=== PATIENT | female | born 1975 | race Caucasian/White ===

== ENCOUNTER 2016-08-01 16:47 | Emergency (ER) | payer OTHER ==
[~2016-08-01] VITALS: Wt 90.6 kg
--- NOTE | 2016-08-01 19:30 | RADRPT ---
PROCEDURE: US OB. CLINICAL INDICATION: Vaginal bleeding TECHNIQUE: Transabdominal and transvaginal views of the pelvis are available for review. COMPARISON: No prior studies are available for comparison. FINDINGS: There is a single intrauterine gestation with the crown-rump length measuring 5.2 cm, corresponding to a gestational age of 11 weeks and 6 days. The heart rate is noted at 166 bpm. The placenta is posterior. There is no evidence of placental abruption. The placenta is seen near the edge of the internal os with partial placenta previa. The cervix measures 3.5 cm in length. The ovaries are not visualized. There is no free fluid. RPTAT: AA IMPRESSION: Single live intrauterine with an estimated gestational age of 11 weeks and 6 days, based o n ultrasound measurements. Posterior placenta with partial previa at this time. Follow-up is needed. MEHNAZ based on ultrasound measurements is 02/14/17. .Bryan Sotelo MD, MD Date Time Electronically viewed and signed by .Bryan Sotelo MD, on 08/01/2016 19:30 .S/
[2016-08-01 19:31] LABS: ADD SCAN DIFF NO
[2016-08-01 19:34] LABS: ABNORMAL IP MESSAGE 1; ADD UMIC YES; EOSINOPHILS # 0.1 10^3/ul (0.0-0.5); EOSINOPHILS % 1.2 % (0.0-7.0); URINE BILIRUBIN (Dip) NEGATIVE (NEGATIVE); URINE BLOOD (Dip) TRACE (NEGATIVE); URINE COLOR LT. YELLOW (YELLOW); URINE GLUCOSE (Dip) NEGATIVE (NEGATIVE); URINE KETONES (Dip) NEGATIVE (NEGATIVE); URINE LEUKOCYTE ESTERASE (Dip) 1+ (NEGATIVE); URINE NITRITE (Dip) NEGATIVE (NEGATIVE); URINE TOTAL PROTEIN (Dip) NEGATIVE (NEGATIVE); URINE UROBILINOGEN (Dip) 0.2 E.U./dL (0.1-1.0)
--- NOTE | 2016-08-01 19:38 | ERD ---
ER Documentation Chief Complaint Date/Time DATE: 08/01/16 TIME: 19:37 Chief Complaint VAGINAL BLEEDING FOR THE PAST FEW DAYS. MILD CRAMPING. NEEDS CHAU PER HPI This is a 41-year-old female stating she is 12 weeks with a history of diabetes type 2 presenting to the emergency department complaining of mild vaginal bleeding for the past 3 days. Patient describes as very mild spotting. She also admits to having mild cramping that comes and goes rating it 2 out of 10. Patient states that she was seen by her ASSEMBLER MOLDED FRAMES at [facility] and requested her to get an ultrasound. ROS All systems reviewed and are negative except as per history of present illness. Medications Home Meds Active Scripts Cephalexin* (Keflex*) 500 Mg Capsule, 500 MG PO QID for 7 Days, CAP Prov:ANIL GUTIERREZ PA-C 08/01/16 Allergies Allergies: Coded Allergies: No Known Allergy (Unverified , 08/01/16) PMhx/Soc History of Surgery: Yes (c section x 3) Hx Miscellaneous Medical Probl: Yes (DM) Hx Alcohol Use: No Hx Substance Use: No Hx Tobacco Use: No Physical Exam Vitals Vital Signs Date Time Temp Pulse Resp B/P Pulse Ox O2 Delivery O2 Flow Rate FiO2 08/01/16 21:30 98.0 67 20 124/58 98 Room Air 08/01/16 17:00 98.8 66 20 127/60 98 Physical Exam General: well-developed/well-nourished, in no apparent distress, non-toxic appearing HENT: NC/AT Eyes: Conjunctiva normal Neck: Supple Pulm: CTA bilaterally, normal breathing CV: Normal S1S2 GI: Soft, non-distended, normal bowel sounds, nTTP Back: No midline tenderness, no masses, No CVAT Ext: No clubbing, cyanosis, or edema Neuro: Alert and orientated Skin: intact, normal turgor Psych: Normal mood and mentation Result Diagram: 08/01/160 Results 24 hrs Laboratory Tests Test 08/01/16 19:20 Basophils # 0.110^3/ul Basophils % 0.6% Beta HCG, Quantitative 31058.0mIU/ml Eosinophils # 0.110^3/ul Eosinophils % 1.2% Hematocrit 33.7% Hemoglobin 10.9g/dl Lymphocytes # 2.310^3/ul Lymphocytes % 22.1% Mean Corpuscular Hemoglobin 26.3pg Mean Corpuscular Hemoglobin Concent 32.3g/dl Mean Corpuscular Volume 81.2fl Mean Platelet Volume fl Monocytes # 0.810^3/ul Monocytes % 8.1% Neutrophils # 6.910^3/ul Neutrophils % 67.6% Nucleated Red Blood Cells # 0.010^3/ul Nucleated Red Blood Cells % 0.0/100WBC Platelet Count 35559^3/UL Red Blood Count 4.1510^6/ul Red Cell Distribution Width 20.7% Urine Bacteria RARE Urine Bilirubin NEGATIVE Urine Clarity CLEAR Urine Color LT. YELLOW Urine Glucose NEGATIVE% Urine Hemoglobin TRACE Urine Ketones NEGATIVE Urine Leukocyte Esterase 1+ Urine Microscopic RBC 0-2/HPF Urine Microscopic WBC 0-2/HPF Urine Nitrite NEGATIVE Urine Specific [place] 1.025 Urine Squamous Epithelial Cells MODERATE Urine Total Protein NEGATIVE Urine Urobilinogen 0.2 E.U./dL Urine pH 5.5 White Blood Count 10.210^3/ul Current Medications Medications (Trade) Dose Ordered Sig/Belle Route PRN Reason Start Time Stop Time Status Last Admin Dose Admin Cephalexin (Keflex) 500 mg ONCE STAT PO 08/01/16 20:04 08/01/16 20:05 DC 08/01/16 20:54 Procedures/MDM This is a 41-year-old female presenting to the emergency department stating she is 12 weeks with a history of diabetes type 2 complaining of mild vaginal spotting and mild cramping that comes and goes for the past few days. On examination patient's abdominal exam is unremarkable. She appears well with stable vital signs. Lab work was done. CBC is did not show any significant anemia or leukocytosis. A beta-hCG level was 69 605 within normal limits. Urinalysis did show evidence of a urinary tract infection with 1+ leukocyte esterase. In the ER patient was given 1 tablet of Keflex. An OB ultrasound was done in the ED and showed that patient had partial placenta previa, I have discussed pelvic rest with the patient and discussed that she needs to have close follow-up with her ASSEMBLER MOLDED FRAMES tomorrow. Prescription for Keflex was provided. Discussed with patient to return to the ER for any worsening symptoms. Patient understands and agrees with this plan. Patient stable for discharge OB ultrasound: There is a single intrauterine gestation with the crown-rump length measuring 5.2 cm, corresponding to a gestational age of 11 weeks and 6 days. The heart rate is noted at 166 bpm. The placenta is posterior. There is no evidence of placental abruption. The placenta is seen near the edge of the internal os with partial placenta previa. The cervix measures 3.5 cm in length. The ovaries are not visualized. There is no free fluid. Single live intrauterine with an estimated gestational age of 11 weeks and 6 days, based on ultrasound measurements. Posterior placenta with partial previa at this time. Follow-up is needed. MEHNAZ based on ultrasound measurements is 02/14/17. Departure Diagnosis: Primary Impression: Vaginal bleeding in patient at less than 20 weeks gestation Additional Impressions: UTI (urinary tract infection) during Placenta previa Condition: Stable ANIL GUTIERREZ PA-C Aug 01, 2016 19:37
[2016-08-01 19:42] LABS: BACTERIA,URINE RARE; BASOPHIL # 0.1 10^3/ul (0.0-0.1); BASOPHILS % 0.6 % (0.0-2.0); HEMATOCRIT 33.7 % (37.0-47.0); HEMOGLOBIN 10.9 g/dl (12.0-16.0); LYMPHOCYTES # 2.3 10^3/ul (0.8-2.9); LYMPHOCYTES % 22.1 % (15.0-51.0); MEAN CORPUSCULAR HEMOGLOBIN 26.3 pg (29.0-33.0); MEAN CORPUSCULAR HGB CONC 32.3 g/dl (32.0-37.0); MEAN CORPUSCULAR VOLUME 81.2 fl (82.0-101.0); MONOCYTE # 0.8 10^3/ul (0.3-0.9); MONOCYTES % 8.1 % (0.0-11.0); NEUTROPHIL # 6.9 10^3/ul (1.6-7.5); NEUTROPHILS % 67.6 % (39.0-77.0); PLATELET COUNT 159 10^3/UL (140-415); RED BLOOD COUNT 4.15 10^6/ul (4.20-5.40); RED CELL DISTRIBUTION WIDTH 20.7 % (11.5-14.5); SQUAMOUS EPITHELIAL CELL,UR MODERATE; URINE RBCS 0-2 /HPF (0); WHITE BLOOD COUNT 10.2 10^3/ul (4.8-10.8)
[2016-08-01] MEDS ORDERED: CEPHALEXIN 500 MG CAP PO STA (20:04)
[2016-08-01] MEDS ORDERED: CEPH-443 PO (21:00)
[2016-08-01 21:30] VITALS: BP 124/58; PULSE 67; RESP 20; TEMP 98
== END 2016-08-01 21:31 | disposition home or self-care (01) ==
LOC: FTE 16:47
DX: O20.9 Hemorrhage in early pregnancy, unspecified (principal); O23.41 Unspecified infection of urinary tract in pregnancy, first trimester; O44.31 Partial placenta previa with hemorrhage, first trimester; O24.419 Gestational diabetes mellitus in pregnancy, unspecified control; Z3A.11 11 weeks gestation of pregnancy
CPT/HCPCS: 36415; 76801; 81001; 84702; 85025; 86900; 86901; Z7502; Z7610; 81003

== ENCOUNTER 2016-09-27 12:18 | Inpatient (IN) | payer OTHER ==
[~2016-09-27] VITALS: Ht 165.1 cm; Wt 91.0 kg
[~2016-09-27 12:18] MED LIST: CEPH-443 PO
[2016-09-27] MEDS ORDERED: AL HYDROX/MG HYDROX/SIMETH 30 ML CUP PO PRN (13:00)
[2016-09-27] MEDS ORDERED: INDOMETHACIN 50 MG PO ONE (13:00)
[2016-09-27] MEDS: FERROUS SULFATE (EC) 325 MG TAB PO SCH ×2 (13:06→21:46)
[2016-09-27 15:11] VITALS: Ht 165.1 cm; Wt 91.0 kg
[2016-09-27 15:14] VITALS: BP 111/50; PULSE 62; RESP 18
[2016-09-27] MEDS: INDOMETHACIN 25 MG PO SCH (19:07)
[2016-09-27] MEDS ORDERED: GLUCOSE GEL 15 GRAM TUBE BUCCAL PRN (19:30)
[2016-09-27] MEDS ORDERED: GLUCAGON 1 MG INJ IM PRN (19:30)
[2016-09-27] MEDS ORDERED: GLUCOSE GEL 15 GRAM TUBE PO PRN ×2 (19:30)
[2016-09-27] MEDS ORDERED: DEXTROSE 50% 50 ML SYRINGE IV PRN ×2 (19:30)
[2016-09-27] MEDS: LACTATED RINGER'S 1,000 ML IV SCH (19:43)
[2016-09-27] MEDS ORDERED: ACCU-CHEK XX SCH (20:05)
[2016-09-27 21:25] LABS: ADD SCAN DIFF NO
[2016-09-27 21:27] LABS: ABNORMAL IP MESSAGE 1; BASOPHILS % 0.2 % (0.0-2.0); EOSINOPHILS % 0.3 % (0.0-7.0); HEMATOCRIT 33.9 % (37.0-47.0); HEMOGLOBIN 11.6 g/dl (12.0-16.0); LYMPHOCYTES # 1.6 10^3/ul (0.8-2.9); LYMPHOCYTES % 12.5 % (15.0-51.0); MEAN CORPUSCULAR HEMOGLOBIN 30.3 pg (29.0-33.0); MEAN CORPUSCULAR HGB CONC 34.2 g/dl (32.0-37.0); MEAN CORPUSCULAR VOLUME 88.5 fl (82.0-101.0); MONOCYTE # 0.8 10^3/ul (0.3-0.9); MONOCYTES % 6.7 % (0.0-11.0); NEUTROPHILS % 79.8 % (39.0-77.0); RED BLOOD COUNT 3.83 10^6/ul (4.20-5.40); RED CELL DISTRIBUTION WIDTH 17.3 % (11.5-14.5); WHITE BLOOD COUNT 12.6 10^3/ul (4.8-10.8)
[2016-09-27 21:44] LABS: INR 1.03; PROTIME 13.5 Sec (12.2-14.2); PT RATIO 1.1
[2016-09-27 21:45] LABS: PARTIAL THROMBOPLASTIN TIME 29.8 Sec (25.0-35.0)
[2016-09-27] MEDS: ACETAMINOPHEN 325 MG TAB PO PRN (21:46)
[2016-09-27 21:56] LABS: MEAN PLATELET VOLUME 14.4 fl (7.4-10.4); PLATELET COUNT 161 10^3/UL (140-415)
[2016-09-27 21:57] LABS: PLATELET ESTIMATE PLT APPEAR ADEQUATE
[2016-09-28] MEDS: INDOMETHACIN 25 MG PO SCH ×3 (00:40→13:07)
[2016-09-28] MEDS: LACTATED RINGER'S 1,000 ML IV SCH ×3 (03:18→21:26)
[2016-09-28] MEDS ORDERED: MISOPROSTOL 200 MCG TAB PR PRN (07:00)
[2016-09-28] MEDS ORDERED: LIDOCAINE 1% (MPF) 30 ML INJ INJ PRN (07:00)
[2016-09-28] MEDS ORDERED: CARBOPROST 250 MCG INJ IM PRN (07:00)
[2016-09-28] MEDS ORDERED: METHYLERGONOVINE 0.2 MG INJ IM PRN (07:00)
[2016-09-28] MEDS ORDERED: OXYTOCIN 30 UNITS/LR 500 ML IV PRN (07:00)
[2016-09-28] MEDS ORDERED: OXYCODONE/ACETAMINOPHEN (5/325) TAB PO PRN (07:00)
[2016-09-28] MEDS ORDERED: LACTATED RINGER'S 1,000 ML IV PRN (07:00)
[2016-09-28] MEDS ORDERED: IBUPROFEN 600 MG TAB PO PRN (07:00)
[2016-09-28] MEDS ORDERED: AMPICILLIN 2 GM/NS (PMX) 100 ML IVPB ONE (09:00)
[2016-09-28] MEDS: MULTIVIT/MIN/FOLATE/IRON/PREN TAB PO SCH (09:00)
[2016-09-28] MEDS: FERROUS SULFATE (EC) 325 MG TAB PO SCH ×3 (09:00→21:28)
--- NOTE | 2016-09-28 10:36 | CONS ---
Date/Time of Note Date/Time of Note DATE: 09/28/16 TIME: 10:09 Consultation Date/Type/Reason Admit Date/Time September 27, 2016 at 12:18 Date of Consultation: September 27, 2016 Type of Consultation: initial hospital counsult Reason for Consultation Prematurity ,Premature contraction Laboratory Tests Test 09/27/16 15:50 09/27/16 19:40 09/27/16 20:14 Membranes Rupture POSITIVE White Blood Count 12.610^3/ul Red Blood Count 3.8310^6/ul Hemoglobin 11.6g/dl Hematocrit 33.9% Mean Corpuscular Volume 88.5fl Mean Corpuscular Hemoglobin 30.3pg Mean Corpuscular Hemoglobin Concent 34.2g/dl Red Cell Distribution Width 17.3% Platelet Count 54724^3/UL Mean Platelet Volume 14.4fl Neutrophils % 79.8% Lymphocytes % 12.5% Monocytes % 6.7% Eosinophils % 0.3% Basophils % 0.2% Nucleated Red Blood Cells % 0.0/100WBC Neutrophils # 10.010^3/ul Lymphocytes # 1.610^3/ul Monocytes # 0.810^3/ul Eosinophils # 0.010^3/ul Basophils # 0.010^3/ul Nucleated Red Blood Cells # 0.010^3/ul Platelet Estimate PLT APPEAR ADEQUATE Large Platelets RARE Prothrombin Time 13.5Sec Prothrombin Time Ratio 1.1 INR International Normalized Ratio 1.03 Activated Partial Thromboplast Time 29.8Sec Bedside Glucose 108mg/dL Current Medications Medications (Trade) Dose Ordered Sig/Belle Route PRN Reason Start Time Stop Time Status Last Admin Dose Admin Prenat Multivit/ [place]/Iron/Folic Ac ( S) 1 tab DAILY PO 09/28/16 09:00 Ferrous Sulfate (Ferrous Sulfate (Ec)) 325 mg TID PO 09/27/16 13:00 09/27/16 21:46 325 MG Acetaminophen (Tylenol Tab) 650 mg Q4H PRN PO PAIN AND OR ELEVATED TEMP 09/27/16 13:00 09/27/16 21:46 650 MG Al Hydrox/Mg Hydrox/Simethicone (Mag-Al Plus) 30 ml Q6H PRN PO GASTROINTESTINAL UPSET 09/27/16 13:00 Indomethacin (Indocin) 50 mg ONCE ONCE PO 09/27/16 13:00 09/27/16 13:01 DC 09/27/16 13:03 50 MG Indomethacin 25 mg 25 mg Q6 PO 09/27/16 18:00 09/28/16 05:57 25 MG Lactated Ringer's (Lr) 1,000 ml @ 125 mls/hr Q8H IV 09/27/16 20:30 09/28/16 03:18 125 MLS/HR Diagnostic Test (Pha) (Accu-Chek) 1 ea FBSPP XX 09/27/16 20:05 09/28/16 08:55 DC 09/27/16 20:46 1 EA Miscellaneous Information (* Miscellaneous Pharmacy Order) 1 ea OB HYPOGLYCEMIA ONCE XX 09/27/16 19:30 09/28/16 08:55 DC 09/27/16 19:30 1 EA Miscellaneous Information 1 ea NOTE XX 09/27/16 19:30 Glucose (Glutose) 15 gm Q15M PRN PO DECREASED GLUCOSE 09/27/16 19:30 09/28/16 08:55 DC Glucose (Glutose) 22.5 gm Q15M PRN PO DECREASED GLUCOSE 09/27/16 19:30 09/28/16 08:55 DC Dextrose (D50w Syringe) 25 ml Q15M PRN IV DECREASED GLUCOSE 09/27/16 19:30 09/28/16 08:55 DC Dextrose (D50w Syringe) 50 ml Q15M PRN IV DECREASED GLUCOSE 09/27/16 19:30 09/28/16 08:55 DC Glucagon (Glucagen) 1 mg Q15M PRN IM DECREASED GLUCOSE 09/27/16 19:30 09/28/16 08:55 DC Glucose (Glutose) 15 gm Q15M PRN BUCCAL DECREASED GLUCOSE 09/27/16 19:30 09/28/16 08:55 DC Lidocaine 30 ml 30 ml ONCE PRN INJ EPISIOTOMY/TEARING 09/28/16 07:00 Lactated Ringer's 1,000 ml @ 2,000 mls/hr Q30M PRN IV PRE-EPIDURAL BOLUS 09/28/16 07:00 Oxytocin/Lactated Ringer's 500 ml @ 0 mls/hr ONCE PRN IV For Hemorrhage Management 09/28/16 07:00 Methylergonovine Maleate (Methergine) 0.2 mg ONCE PRN IM VAGINAL BLEEDING 09/28/16 07:00 Carboprost Tromethamine (Hemabate) 250 mcg ONCE PRN IM VAGINAL BLEEDING 09/28/16 07:00 Misoprostol (Cytotec) 1,000 mcg ONCE PRN [place] VAGINAL BLEEDING 09/28/16 07:00 Ibuprofen (Motrin) 600 mg Q6H PRN PO PAIN AND OR ELEVATED TEMP 09/28/16 07:00 Oxycodone/ Acetaminophen 1 tab 1 tab Q4H PRN PO PAIN LEVEL 1-5 09/28/16 07:00 Ampicillin 50 ml @ 100 mls/hr Q4 IVPB 09/28/16 13:00 Ampicillin 100 ml @ 100 mls/hr ONCE ONCE IVPB 09/28/16 09:00 09/28/16 09:59 DC 09/28/16 09:03 100 MLS/HR Azithromycin (Zithromax 500mg/ NS (Pmx)) 250 ml @ 250 mls/hr Q24H IVPB 09/28/16 12:00 Hx of Present Illness This patient is a 41 yol ,G4, P3 who had all her past deliveries by C. Section Came in the hospital due to lower abdominal, pain premature contractions and bulging amniotic membranes inside vagina/. On general she did not have much complaint of pain, Abdomen and fundus were soft , [place] rate about 135 to 150. On gentle pelvic exam: She had slight bloody discharge , Amniotic membranes were intact but partially protruding into the vagina, I did not try fo palpate cervix Constitutional: No chills, No diaphoresis, No disoriented, No febrile, No improved, No no complaints, No other, No poor po, No requiring IVF, No requiring O2 Eyes: No discharge, No no complaints, No other, No pain, No redness, No visual change ENT: No bleeding, No congestion, No discharge, No dysphagia, No no complaints, No other, No pain, No sore throat Respiratory: No cough, No no complaints, No other, No pain, No pleuritic pain, No shortness of breath, No sputum, No wheezing Cardiovascular: No chest pain, No edema, No lightheadedness, No no complaints, No orthopenea, No other, No palpitations, No paroxysmal nocturnal dyspnea Gastrointestinal: No blood, No constipation, No decreased appetite, No diarrhea , No flatus, No nausea, No no complaints, No other, No pain, No passing stool, No vomiting Genitourinary: other (vag discharge and bulging amniotic membranes in sisid vagina ), No bleeding, No discharge, No dysuria, No flank pain, No hematuria, No no complaints Musculoskeletal: No back pain, No bone/joint pain, No neck pain, No no complaints, No other, No restricted range of motion, No swelling Skin: No bruising, No erythema, No laceration, No no complaints, No other, No pruritis, No rash, No skin lesions Neurologic: No confusion, No dizziness, No focal-weakness, No headache, No no complaints, No other, No seizure, No syncope Endocrine: No dry skin, No no complaints, No other, No polydypsia, No polyuria , No temp intolerance Lymphatic: No adenopathy, No lymphadema, No no complaints, No other, No tender nodes Additional Comments In consultation with Perinatologist; Dr Ramsey Patient was given Indomethacin 50 mg Po, to be followed by 25mg every 6 hours for 4 days Social History Smoking Status: Never smoker Exam/Review of Systems Vital Signs Vitals Vital Signs Date Time Temp Pulse Resp B/P Pulse Ox O2 Delivery O2 Flow Rate FiO2 09/27/16 15:14 98.3 62 18 111/50 100 Room Air Intake and Output 09/27/16 09/27/16 09/28/16 15:00 23:00 07:00 Intake Total 495 ml 1031.25 ml Output Total 450 ml Balance 45 ml 1031.25 ml Results Result Diagram: 09/27/161939 Results 24 hrs Laboratory Tests Test 09/27/16 15:50 09/27/16 19:40 09/27/16 20:14 Membranes Rupture POSITIVE H White Blood Count 12.6 #H Red Blood Count 3.83 L Hemoglobin 11.6 L Hematocrit 33.9 L Mean Corpuscular Volume 88.5 Mean Corpuscular Hemoglobin 30.3 Mean Corpuscular Hemoglobin Concent 34.2 Red Cell Distribution Width 17.3 H Platelet Count 161 Mean Platelet Volume 14.4 H Neutrophils % 79.8 H Lymphocytes % 12.5 L Monocytes % 6.7 Eosinophils % 0.3 Basophils % 0.2 Nucleated Red Blood Cells % 0.0 Neutrophils # 10.0 H Lymphocytes # 1.6 Monocytes # 0.8 Eosinophils # 0.0 Basophils # 0.0 Nucleated Red Blood Cells # 0.0 Platelet Estimate PLT APPEAR ADEQUATE Large Platelets RARE Prothrombin Time 13.5 Prothrombin Time Ratio 1.1 INR International Normalized Ratio 1.03 Activated Partial Thromboplast Time 29.8 Bedside Glucose 108 Medications Medications Current Medications Prenat Multivit/ [place]/Iron/Folic Ac ( S) 1 tab DAILY PO ; Start at 09:00 Ferrous Sulfate (Ferrous Sulfate (Ec)) 325 mg TID PO Last administered on 21:46; Admin Dose 325 MG; Start 09/27/16 at 13:00 Acetaminophen (Tylenol Tab) 650 mg Q4H PRN PO PAIN AND OR ELEVATED TEMP Last administered on 09/27/16 21:46; Admin Dose 650 MG; Start 09/27/16 at 13:00 Al Hydrox/Mg Hydrox/Simethicone (Mag-Al Plus) 30 ml Q6H PRN PO GASTROINTESTINAL UPSET; Start 09/27/16 at 13:00 Indomethacin 25 mg 25 mg Q6 PO Last administered on 09/28/16 05:57; Admin Dose 25 MG; Start 09/27/16 at 18:00 Lactated Ringer's (Lr) 1,000 ml @ 125 mls/hr Q8H IV Last administered on 03:18; Admin Dose 125 MLS/HR; Start 09/27/16 at 20:30 Miscellaneous Information 1 ea NOTE XX ; Start 09/27/16 at 19:30 Lidocaine 30 ml 30 ml ONCE PRN INJ EPISIOTOMY/TEARING; Start 09/28/16 at 07:00 Lactated Ringer's 1,000 ml @ 2,000 mls/hr Q30M PRN IV PRE-EPIDURAL BOLUS; Start 09/28/16 at 07:00 Oxytocin/Lactated Ringer's 500 ml @ 0 mls/hr ONCE PRN IV For Hemorrhage Management; Start 09/28/16 at 07:00 Methylergonovine Maleate (Methergine) 0.2 mg ONCE PRN IM VAGINAL BLEEDING; Start 09/28/16 at 07:00 Carboprost Tromethamine (Hemabate) 250 mcg ONCE PRN IM VAGINAL BLEEDING; Start 09/28/16 at 07:00 Misoprostol (Cytotec) 1,000 mcg ONCE PRN [place] VAGINAL BLEEDING; Start 09/28/16 at 07:00 Ibuprofen (Motrin) 600 mg Q6H PRN PO PAIN AND OR ELEVATED TEMP; Start 09/28/16 at 07:00 Oxycodone/ Acetaminophen 1 tab 1 tab Q4H PRN PO PAIN LEVEL 1-5; Start 09/28/16 at 07:00 Ampicillin 50 ml @ 100 mls/hr Q4 IVPB ; Start 09/28/16 at 13:00 Azithromycin (Zithromax 500mg/ NS (Pmx)) 250 ml @ 250 mls/hr Q24H IVPB ; Start 09/28/16 at 12:00 AUGUSTO CHRISTENSEN MD September 28, 2016 10:28
[2016-09-28] MEDS ORDERED: AZITHROMYCIN 500MG/NS (PMX) 250 ML IVPB SCH (12:00)
[2016-09-28] MEDS: AMPICILLIN 1 GM/NS (PMX) 50 ML IVPB SCH ×3 (13:07→21:25)
--- NOTE | 2016-09-28 13:34 | QN ---
Documentation Comment cancel post orders wrong pt EDEL BERNABE MD September 28, 2016 13:33
--- NOTE | 2016-09-28 13:56 | QN ---
Documentation Comment I was asked to see Mrs. Griffiths who is a 41-year-old with 3 prior deliveries currently 20 weeks of gestation. On ultrasound yesterday she was found to have dilated cervix with amniotic membranes prolapsing into the vagina. A test (ROM+) performed later in the evening after she complained of vaginal leakage was suggestive of ruptured membranes. I was asked to reconsult with the patient regarding prognosis and suggestions regarding plan of care. I explained to the patient that the fetus is too small to be successfully resuscitated at this time. The fetus weighs less than 1 pound and the lungs would not be expected to be able to breathe air. By contrast I expressed that the smallest babies currently able to be resuscitated in this setting are 23-24 weeks of gestation. I further described to her the problems associated with early rupture of membranes including hypoplastic lungs with a consequent inability to resuscitate the fetus even after 24 weeks. I described to the patient the increased risk to her of a serious uterine infection related to her ruptured membranes. I stated that the best medical advice to her at this time would be to terminate the . This discussion was held with the supervisor chemical. The patient's questions were answered. She appeared to understand the information given and expressed her willingness to terminate the at this time. The patient did request a vaginal delivery. I described to her the possible risks of vaginal delivery after 3 prior deliveries including rupture of uterus and possible hysterectomy. I also stated to her that this decision would have to be taken between her and her OB doctor and I encouraged her to bring this matter up with him. Thank you very much for the consultation request. MD DANAY Nuñez MARIE H MD September 28, 2016 13:56
[2016-09-28] MEDS ORDERED: ACETAMINOPHEN 325 MG TAB PO ONE (15:30)
[2016-09-28] MEDS ORDERED: OXYTOCIN 30 UNITS/LR 500 ML IV SCH (15:30)
[2016-09-28] MEDS: ACETAMINOPHEN 325 MG TAB PO PRN (15:38)
--- NOTE | 2016-09-28 15:50 | HP ---
Date/Time of Note Date/Time of Note DATE: 09/28/16 TIME: 15:16 OB - History Hx of Present Free Text/Dictation This is a 41 years old female she was referred from clinic at approximately 20 weeks gestation diagnosed with prolapse membrane through the 1 cm dilated cervix into the vagina for admission and treatment for her condition ,at first it was suggested patient be treated with indomethacin but during the early hours of admission it was noted some leakage from the vagina , perinatology consult requested as well as neonatology, recommendation by perinatologist after her assessment of patient was to terminate due to complication of nonviable fetus with ruptured membrane risk of chorioamnionitis and sepsis patient seems understood her condition and agreed with termination of , since patient had 3 previous section at term and this is at only 20 weeks of gestation perinatologist recommended a trial of labor considering there are risk for rupture uterus by using uterotonic medication , induction will start under extreme caution with Pitocin IV drip, this is the plan which patient desires to proceed before section , risk of rupture uterus possible hysterectomy during this trial also has been discussed with her. With the help of chiseler head. Chief Complaint: Extreme prolapse membrane to the vagina, premature ruptur Estimated Due Date: Jan 11, 2017 : 4 Para: 3 Care: Limited Care Ultrasounds: Abnormal US findings Obstetrical Complications: Gestational Diabetes Medical Complications: None Past Family/Social History * Past Medical, Surgical, Family and Obstetric Histories reviewed from chart. Rubella: immune RPR/VDRL: Negative GBS Status: Unknown HBsAG: Negative OB Admission Exam Vital Signs Vital Signs Vital Signs Date Time Temp Pulse Resp B/P Pulse Ox O2 Delivery O2 Flow Rate FiO2 09/27/16 15:14 98.3 62 18 111/50 100 Room Air Physical Exam HEENT: WNL Heart: Rhythm Normal Lungs: Clear, Equal Abdomen: WNL Extremities: Normal Cervical Dilatation: 1cm Effacement: 50% Station: Other (Extreme prematurity estimated weight under 350 g) Membranes: Ruptured Amniotic Fluid: Clear Heart Rate: 140's Last 72 hourBlood Glucose Bedside Glucose - 72 Hours Test 09/27/16 20:14 Bedside Glucose 108mg/dL (70-220) Last 72 hours Lab Results CBC & BMP 09/27/16 19:40 OB Assessment/Plan Reason for admission: other (Trial of Pitocin induction, possible ) EDEL BERNABE MD September 28, 2016 15:45
[2016-09-29] MEDS: AMPICILLIN 1 GM/NS (PMX) 50 ML IVPB SCH ×4 (01:01→13:16)
[2016-09-29] MEDS: LACTATED RINGER'S 1,000 ML IV SCH ×2 (06:11→13:18)
--- NOTE | 2016-09-29 08:58 | QN ---
Documentation Comment Laborist In to evaluate pt at request of primary OB, Dr. Sosa 2/2 concern for lack of progress after IV Pitocin for IOL at 20wks with previable PPROM. Discussed with pt option for placing avalos balloon to assist with dilation given limited options for induction of labor in the setting of prior uterine scar x3. Pt amenable to insertion. On SVE, cervix now 3/40/high. Cook catheter placed at 0800. Seems reasonable to continue with Pitocin and Cook catheter since progress has been appreciated thus far. Will reassess in 4hrs. Dr. Sosa aware. Pt remains afebrile, T 98.5, BP 102/55, P 70 Abdomen soft, nontender No current signs of chorioamnionitis. Continue to monitor. AAYUSH SUMMERS MD September 29, 2016 08:57
[2016-09-29] MEDS: MULTIVIT/MIN/FOLATE/IRON/PREN TAB PO SCH ×2 (09:00→09:09)
[2016-09-29] MEDS: FERROUS SULFATE (EC) 325 MG TAB PO SCH ×2 (09:00→13:00)
--- NOTE | 2016-09-29 12:31 | QN ---
Documentation Comment Laborist In to see pt around noon. SVE performed and intracervical balloon still in place. Pt more uncomfortable with UCs. Offered and pt declines pain meds at this time. Continue present management. AAYUSH SUMMERS MD September 29, 2016 12:31
--- NOTE | 2016-09-29 15:19 | LDN ---
Date/Time of Note Date/Time of Note DATE: 09/29/16 TIME: 15:12 Delivery Summary Pt pushed to an of a non-viable female. Weight still pending at this time. Easy delivery of the fetus from footling breech presentation. Placenta delivered shortly thereafter. Fundus noted to be firm and uterine bleeding minimal. Vagina inspected and bleeding noted from small laceration at hymenal ring which was rendered hemostatic with 3-0 Vicryl suture under local anesthesia. EBL 150ml. Patient and partner coping appropriately. Following family time with fetus, will send to Pathology along with placenta. Placental cultures obtained as well. Weeks of Gestation 20 Placenta Delivered: Spontaneously Meconium: none Episiotomy: No Anesthesia type: Local (for vaginal repair) Estimated blood loss: 150 Sponge & Needle done & correct: Yes All needle counts correct: Yes Any foreign bodies felt in the: No Problems: Infant Delivery Information Sex Infant Sex: female Suctioning Nose & mouth suctioned at maddy: No Delee suction performed: No Umbilical Cord Cord Blood was obtained: No Mother & Baby Disposition Disposition Mom transferred to: Antepartum AAYUSH SUMMERS MD September 29, 2016 15:19
[2016-09-29] MEDS: LACTATED RINGER'S 1,000 ML IV* SCH ×2 (15:20→21:15)
[2016-09-29] MEDS ORDERED: ONDANSETRON 4 MG INJ IV PRN (15:30)
[2016-09-29] MEDS ORDERED: BENZOCAINE 20% 56 ML SPRAY TOP PRN (15:30)
[2016-09-29] MEDS ORDERED: DIBUCAINE 1% 30 GM OINT PR PRN (15:30)
[2016-09-29] MEDS ORDERED: CARBOPROST 250 MCG INJ IM PRN (15:30)
[2016-09-29] MEDS ORDERED: DIPHENHYDRAMINE 50 MG INJ IV PRN (15:30)
[2016-09-29] MEDS ORDERED: ACETAMINOPHEN 325 MG TAB PO PRN (15:30)
[2016-09-29] MEDS ORDERED: OXYTOCIN 30 UNITS/LR 500 ML IV PRN (15:30)
[2016-09-29] MEDS ORDERED: SENNA/DOCUSATE NA (8.6MG/50MG) TAB PO PRN (15:30)
[2016-09-29] MEDS ORDERED: METHYLERGONOVINE 0.2 MG INJ IM PRN (15:30)
[2016-09-29] MEDS: IBUPROFEN 600 MG TAB PO SCH (17:23)
[2016-09-30] MEDS: IBUPROFEN 600 MG TAB PO SCH ×3 (00:03→11:43)
[2016-09-30] MEDS: LACTATED RINGER'S 1,000 ML IV* SCH (04:42)
[2016-09-30 08:30] LABS: ADD SCAN DIFF NO
[2016-09-30 08:36] LABS: ABNORMAL IP MESSAGE 1; BASOPHIL # 0.1 10^3/ul (0.0-0.1); BASOPHILS % 0.4 % (0.0-2.0); EOSINOPHILS # 0.1 10^3/ul (0.0-0.5); EOSINOPHILS % 0.9 % (0.0-7.0); HEMATOCRIT 30.7 % (37.0-47.0); HEMOGLOBIN 10.2 g/dl (12.0-16.0); LYMPHOCYTES # 1.5 10^3/ul (0.8-2.9); LYMPHOCYTES % 12.7 % (15.0-51.0); MEAN CORPUSCULAR HEMOGLOBIN 29.9 pg (29.0-33.0); MEAN CORPUSCULAR HGB CONC 33.2 g/dl (32.0-37.0); MEAN PLATELET VOLUME 13.5 fl (7.4-10.4); MONOCYTE # 0.8 10^3/ul (0.3-0.9); MONOCYTES % 6.5 % (0.0-11.0); NEUTROPHIL # 9.5 10^3/ul (1.6-7.5); NEUTROPHILS % 78.8 % (39.0-77.0); PLATELET COUNT 152 10^3/UL (140-415); RED BLOOD COUNT 3.41 10^6/ul (4.20-5.40); RED CELL DISTRIBUTION WIDTH 17.1 % (11.5-14.5); WHITE BLOOD COUNT 12.1 10^3/ul (4.8-10.8)
--- NOTE | 2016-09-30 09:22 | PD.PPDC ---
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
--- NOTE | 2016-09-30 09:35 | DS ---
Date/Time of Note Date/Time of Note DATE: 09/30/16 TIME: 09:26 Discharge Summary Admission/Discharge Info Admit Date/Time September 27, 2016 at 12:18 Discharge Date/Time September 30, 2016 at 9:30 AM Final Diagnosis Post spontaneous vaginal delivery of demise nonviable 20 week gestation is being discharged home with follow-up instruction to be seen at the clinic in 1 week Patient Condition: Good Procedures 20 weeks demised fetus with spontaneous delivery with the help of the catheter balloon fetus and placenta was sent to the pathology Hospital Course This patient is a 41 yol ,G4, P3 who had all her past deliveries by C. Section Came in the hospital due to lower abdominal, pain premature contractions and bulging amniotic membranes inside vagina/. On general she did not have much complaint of pain, Abdomen and fundus were soft , bocanegra rate about 135 to 150. On gentle pelvic exam: She had slight bloody discharge , Amniotic membranes were intact but partially protruding into the vagina, I did not try fo palpate cervix Home Meds Active Scripts Cephalexin* (Keflex*) 500 Mg Capsule, 500 MG PO QID for 7 Days, CAP Prov:ANIL GUTIERREZ PA-C 08/01/16 Follow-up Plan Post spontaneous vaginal delivery of demised 20 weeks gestation is being discharged home with follow-up instruction at the clinic in 1 week Pending Labs Laboratory Tests Test 09/30/16 08:15 White Blood Count 12.110^3/ul (4.8-10.8) Red Blood Count 3.4110^6/ul (4.20-5.40) Hemoglobin 10.2g/dl (12.0-16.0) Hematocrit 30.7% (37.0-47.0) Mean Corpuscular Volume 90.0fl (82.0-101.0) Mean Corpuscular Hemoglobin 29.9pg (29.0-33.0) Mean Corpuscular Hemoglobin Concent 33.2g/dl (32.0-37.0) Red Cell Distribution Width 17.1% (11.5-14.5) Platelet Count 16502^3/UL (140-415) Mean Platelet Volume 13.5fl (7.4-10.4) Neutrophils % 78.8% (39.0-77.0) Lymphocytes % 12.7% (15.0-51.0) Monocytes % 6.5% (0.0-11.0) Eosinophils % 0.9% (0.0-7.0) Basophils % 0.4% (0.0-2.0) Nucleated Red Blood Cells % 0.0/100WBC (0.0-0.0) Neutrophils # 9.510^3/ul (1.6-7.5) Lymphocytes # 1.510^3/ul (0.8-2.9) Monocytes # 0.810^3/ul (0.3-0.9) Eosinophils # 0.110^3/ul (0.0-0.5) Basophils # 0.110^3/ul (0.0-0.1) Nucleated Red Blood Cells # 0.010^3/ul (0.0-0.0) EDEL BERNABE MD September 30, 2016 09:35
--- NOTE | 2016-09-30 09:39 | DS ---
Date/Time of Note Date/Time of Note DATE: 09/30/16 TIME: 09:35 Discharge Summary Admission/Discharge Info Admit Date/Time September 27, 2016 at 12:18 Discharge Date/Time 10 AM September 30, 2016 Final Diagnosis Post spontaneous vaginal delivery of demised 20 weeks gestation Patient Condition: Good Procedures Spontaneous vaginal delivery of demised 20 weeks gestation Hx of Present Illness 20 weeks protruding membrane into the vagina with demised fetus had a spontaneous vaginal delivery with the help of the balloon catheter Hospital Course This patient is a 41 yol ,G4, P3 who had all her past deliveries by C. Section Came in the hospital due to lower abdominal, pain premature contractions and bulging amniotic membranes inside vagina/. On general she did not have much complaint of pain, Abdomen and fundus were soft , bocanegra rate about 135 to 150. On gentle pelvic exam: She had slight bloody discharge , Amniotic membranes were intact but partially protruding into the vagina, I did not try fo palpate cervix Home Meds Active Scripts Cephalexin* (Keflex*) 500 Mg Capsule, 500 MG PO QID for 7 Days, CAP Prov:ANIL GUTIERREZ PA-C 08/01/16 Follow-up Plan instructions given patient advised to make appointment to be seen at the clinic in 1 week Pending Labs Laboratory Tests Test 09/30/16 08:15 White Blood Count 12.110^3/ul (4.8-10.8) Red Blood Count 3.4110^6/ul (4.20-5.40) Hemoglobin 10.2g/dl (12.0-16.0) Hematocrit 30.7% (37.0-47.0) Mean Corpuscular Volume 90.0fl (82.0-101.0) Mean Corpuscular Hemoglobin 29.9pg (29.0-33.0) Mean Corpuscular Hemoglobin Concent 33.2g/dl (32.0-37.0) Red Cell Distribution Width 17.1% (11.5-14.5) Platelet Count 98160^3/UL (140-415) Mean Platelet Volume 13.5fl (7.4-10.4) Neutrophils % 78.8% (39.0-77.0) Lymphocytes % 12.7% (15.0-51.0) Monocytes % 6.5% (0.0-11.0) Eosinophils % 0.9% (0.0-7.0) Basophils % 0.4% (0.0-2.0) Nucleated Red Blood Cells % 0.0/100WBC (0.0-0.0) Neutrophils # 9.510^3/ul (1.6-7.5) Lymphocytes # 1.510^3/ul (0.8-2.9) Monocytes # 0.810^3/ul (0.3-0.9) Eosinophils # 0.110^3/ul (0.0-0.5) Basophils # 0.110^3/ul (0.0-0.1) Nucleated Red Blood Cells # 0.010^3/ul (0.0-0.0) EDEL BERNABE MD September 30, 2016 09:39
== END 2016-09-30 10:20 | disposition home or self-care (01) | DRG 775 ==
LOC: OBG 12:18 → L-D 09-28 07:20 → OBG 09-29 17:38
PROVIDERS: ADMIT Obstetrics & Gynecology; ATTEND Obstetrics & Gynecology
PROC: 10E0XZZ Delivery of Products of Conception, External Approach (ICD-10-PCS; principal; 2016-09-29)
PROC: 0U7C7ZZ Dilation of Cervix, Via Natural or Artificial Opening (ICD-10-PCS; 2016-09-29)
PROC: 0HQ9XZZ Repair Perineum Skin, External Approach (ICD-10-PCS; 2016-09-29)
DX: O42.912 Preterm premature rupture of membranes, unspecified as to length of time between rupture and onset of labor, second trimester (principal); O24.429 Gestational diabetes mellitus in childbirth, unspecified control; O70.0 First degree perineal laceration during delivery; O32.8XX0 Maternal care for other malpresentation of fetus, not applicable or unspecified; O34.219 Maternal care for unspecified type scar from previous cesarean delivery; Z3A.20 20 weeks gestation of pregnancy; Z37.1 Single stillbirth
CPT/HCPCS: 82962; 84112; 85025; 85610; 85730; 86850; 86900; 86901; 86920; 87070; 88307; J0290; J0456; J2590; J7120